=== PATIENT | female | born 1985 | race Caucasian/White ===

== ENCOUNTER 2023-12-19 16:02 | Inpatient (IN) | payer BC, OTHER ==
[2023-12-19] MEDS ORDERED: FAMOTIDINE 20 MG/50 ML IVPB 20 MG/50 ML MG IVPB ONE ×2 (17:03→17:08)
[2023-12-19] MEDS ORDERED: ONDANSETRON 4 MG/2 ML VIAL IVPUSH ONE (17:03)
[2023-12-19] MEDS ORDERED: morphine CARPU-JECT 2 MG/1 ML DISP.SYRIN IVPUSH ONE ×2 (17:03→18:48)
[2023-12-19] MEDS ORDERED: ONDANSETRON 4 MG/2 ML VIAL ONE (17:08)
[2023-12-19] MEDS ORDERED: morphine SULFATE 4 MG/ML VIAL ONE (17:08)
[2023-12-19 17:37] LABS: BASO % 0.3 % (0-2.0); EOS % 0.1 % (0-4.5); HEMATOCRIT 40.1 % (32.4-45.2); HEMOGLOBIN 13.8 GM/dL (10.7-15.3); LYMPH % 9.1 % (8-40); MCHC 34.4 g/dl (32.0-36.0); MEAN PLT VOLUME 8.4 fl (7.5-11.1); NEUT % 87.5 % (42.8-82.8); PLATELET COUNT 329 10^3/uL (134-434); RBC 4.46 M/mm3 (3.60-5.2); RDW 13.6 % (11.6-15.6); WHITE BLOOD COUNT 11.5 K/mm3 (4.0-10.0)
[2023-12-19 17:46] LABS: INR 1.08 (0.83-1.09); PROTHROMBIN TIME (PATIENT) 12.5 SEC (9.7-13.0)
[2023-12-19 17:49] LABS: ACTIVATED PTT 29.1 SECONDS (25.2-36.5)
[2023-12-19 18:21] LABS: POTASSIUM 3.3 mmol/L (3.5-5.1)
[2023-12-19 18:24] LABS: BLOOD UREA NITROGEN 10.9 mg/dL (7-18); CALCIUM 9.9 mg/dL (8.5-10.1)
[2023-12-19 18:25] LABS: MAGNESIUM 1.8 mg/dL (1.8-2.4)
[2023-12-19 18:27] LABS: CREATININE 0.7 mg/dL (0.55-1.3)
[2023-12-19 18:28] LABS: TOT PROT 8.1 g/dl (6.4-8.2)
[2023-12-19 18:29] LABS: BILIRUBIN,TOTAL 0.4 mg/dL (0.2-1)
[2023-12-19] MEDS ORDERED: KCL 20 MEQ PREMIX BAG 20 MEQ/100 ML INFUS.BAG IVPB SCH (18:30)
[2023-12-19] MEDS ORDERED: ACETAMINOPHEN 1000 MG/100 ML BAG IVPB ONE (18:30)
[2023-12-19] MEDS ORDERED: LACTATED RINGERS SOLUTION 1000 ML INFUS.BAG IV ONE ×2 (18:31→22:31)
[2023-12-19] MEDS ORDERED: ACETAMINOPHEN INJECTION 100 ML IVPB ONE (18:39)
[2023-12-19] MEDS ORDERED: KCL 10 MEQ IVPB 10 MEQ/100 ML INFUS.BAG IVPB ONE ×2 (18:54→21:51)
[2023-12-19 18:57] LABS: LACTIC ACID 3.2 mmol/L (0.4-2.0)
[2023-12-19] MEDS: KCL 10 MEQ IVPB 10 MEQ/100 ML INFUS.BAG IVPB SCH ×2 (19:00→21:38)
[2023-12-19] MEDS ORDERED: KETOROLAC TROMETHAMINE 15 MG/ML VIAL IVPUSH ONE (20:34)
[2023-12-19] MEDS ORDERED: KETOROLAC TROMETHAMINE 15 MG/ML VIAL ONE (20:37)
[2023-12-19 23:07] LABS: URINE APPEARANCE CLEAR; URINE BILIRUBIN NEGATIVE (NEGATIVE); URINE COLOR YELLOW; URINE GLUCOSE (UA) NEGATIVE (NEGATIVE)
[2023-12-19 23:08] LABS: URINE KETONE >=80 mg/dl (NEGATIVE); URINE LEUK ESTERASE NEGATIVE (NEGATIVE); URINE NITRITE NEGATIVE (NEGATIVE); URINE PROTEIN NEGATIVE (NEGATIVE)
[2023-12-19 23:23] LABS: COCAINE, UR NEGATIVE (NEGATIVE); METHADONE, UR NEGATIVE (NEGATIVE); OPIATES, URI POSITIVE (NEGATIVE); PHENCYCLIDINE,URINE NEGATIVE (NEGATIVE); URINE AMPHETAMINES NEGATIVE (NEGATIVE); URINE BARBITURATES NEGATIVE (NEGATIVE); URINE BENZODIAZEPINES NEGATIVE (NEGATIVE)
[2023-12-20] MEDS: SODIUM CHLORIDE 1,000 ML IV SCH ×2 (01:25→21:40)
[2023-12-20] MEDS: KETOROLAC TROMETHAMINE 15 MG/ML VIAL IVPUSH PRN ×4 (01:38→18:34)
[2023-12-20] MEDS ORDERED: KETOROLAC TROMETHAMINE 15 MG/ML VIAL ONE ×3 (01:45→14:27)
[2023-12-20] MEDS ORDERED: BISACODYL 10 MG SUPP.RECT PR ONE (05:44)
[2023-12-20] MEDS ORDERED: BISACODYL 10 MG SUPP.RECT ONE (05:46)
[2023-12-20] MEDS ORDERED: ONDANSETRON 4 MG/2 ML VIAL IVPUSH PRN (07:33)
[2023-12-20 07:37] LABS: HEMOGLOBIN 13.2 GM/dL (10.7-15.3); MCH 31.5 pg (25.7-33.7); MCHC 34.6 g/dl (32.0-36.0); MEAN CELL VOLUME 91.1 fl (80-96); MEAN PLT VOLUME 8.7 fl (7.5-11.1); PLATELET COUNT 305 10^3/uL (134-434); RBC 4.18 M/mm3 (3.60-5.2); RDW 13.6 % (11.6-15.6); WHITE BLOOD COUNT 11.2 K/mm3 (4.0-10.0)
[2023-12-20 07:59] LABS: POTASSIUM 3.7 mmol/L (3.5-5.1)
[2023-12-20 08:04] LABS: CALCIUM 8.9 mg/dL (8.5-10.1)
[2023-12-20 08:05] LABS: ALBUMIN 3.2 g/dl (3.4-5.0); BLOOD UREA NITROGEN 7.6 mg/dL (7-18); MAGNESIUM 1.8 mg/dL (1.8-2.4)
[2023-12-20 08:07] LABS: PHOSPHOROUS 4.1 mg/dL (2.5-4.9)
[2023-12-20 08:08] LABS: CREATININE 0.5 mg/dL (0.55-1.3)
[2023-12-20 08:09] LABS: TOT PROT 6.8 g/dl (6.4-8.2)
[2023-12-20 09:10] LABS: BILIRUBIN,TOTAL 0.8 mg/dL (0.2-1)
[2023-12-20] MEDS: ENOXAPARIN NA (PORCINE) 40 MG/0.4 ML DISP.SYRIN SQ SCH (09:50)
[2023-12-20] MEDS ORDERED: FAMOTIDINE 20 MG/50 ML IVPB 20 MG/50 ML MG IVPB ONE (09:53)
[2023-12-20] MEDS ORDERED: ONDANSETRON 4 MG/2 ML VIAL ONE (09:53)
[2023-12-20] MEDS: FAMOTIDINE 20 MG/50 ML IVPB 20 MG/50 ML MG IVPB SCH ×2 (10:01→21:41)
[2023-12-20 16:37] VITALS: BMI 26.5
[2023-12-20] MEDS: ACETAMINOPHEN 1000 MG/100 ML BAG IVPB PRN (21:37)
[2023-12-20] MEDS ORDERED: SENNOSIDES/DOCUSATE COMBO (SENNA PLUS) TABLET (UD) PO SCH (22:00)
[2023-12-21] MEDS: KETOROLAC TROMETHAMINE 15 MG/ML VIAL IVPUSH PRN ×2 (00:12→06:24)
[2023-12-21] MEDS: ACETAMINOPHEN 1000 MG/100 ML BAG IVPB PRN (03:38)
[2023-12-21] MEDS ORDERED: traMADol HCL 50 MG TABLET PO PRN (08:03)
[2023-12-21] MEDS: ACETAMINOPHEN 1000 MG/100 ML BAG IVPB SCH ×2 (09:10→16:08)
[2023-12-21] MEDS: FAMOTIDINE 20 MG/50 ML IVPB 20 MG/50 ML MG IVPB SCH (09:11)
[2023-12-21] MEDS: KETOROLAC TROMETHAMINE 15 MG/ML VIAL IVPUSH SCH ×4 (09:11→21:50)
[2023-12-21] MEDS: ENOXAPARIN NA (PORCINE) 40 MG/0.4 ML DISP.SYRIN SQ SCH (09:12)
[2023-12-21] MEDS: POLYETHYLENE GLYCOL (HEALTHYLAX) 3350 17 GM PACKET PO SCH ×4 (09:12→21:50)
[2023-12-21] MEDS: PANTOPRAZOLE SODIUM 40 MG VIAL IVPUSH SCH ×2 (10:16→21:37)
[2023-12-21 10:50] LABS: BASO % 0.3 % (0-2.0); EOS % 0.2 % (0-4.5); HEMATOCRIT 36.8 % (32.4-45.2); HEMOGLOBIN 12.9 GM/dL (10.7-15.3); LYMPH % 19.6 % (8-40); MCH 32.2 pg (25.7-33.7); MCHC 35.2 g/dl (32.0-36.0); MEAN CELL VOLUME 91.4 fl (80-96); MEAN PLT VOLUME 8.7 fl (7.5-11.1); MONO % 5.3 % (3.8-10.2); NEUT % 74.6 % (42.8-82.8); PLATELET COUNT 258 10^3/uL (134-434); RBC 4.03 M/mm3 (3.60-5.2); RDW 13.2 % (11.6-15.6); WHITE BLOOD COUNT 8.9 K/mm3 (4.0-10.0)
[2023-12-21 10:55] LABS: POTASSIUM 3.8 mmol/L (3.5-5.1)
[2023-12-21 11:05] LABS: CALCIUM 8.3 mg/dL (8.5-10.1)
[2023-12-21 11:08] LABS: CREATININE 0.5 mg/dL (0.55-1.3)
[2023-12-21 11:09] LABS: TOT PROT 6.2 g/dl (6.4-8.2)
[2023-12-21 11:10] LABS: BILIRUBIN,TOTAL 0.7 mg/dL (0.2-1)
[2023-12-21] MEDS: AMINO ACIDS 4.25%/D5W 1,000 ML IV SCH (16:08)
[2023-12-21] MEDS: ONDANSETRON 4 MG/2 ML VIAL IVPUSH PRN (16:08)
[2023-12-21] MEDS: SODIUM CHLORIDE 1,000 ML IV SCH (16:09)
[2023-12-22] MEDS: ACETAMINOPHEN 1000 MG/100 ML BAG IVPB SCH ×3 (00:30→18:18)
[2023-12-22] MEDS: KETOROLAC TROMETHAMINE 15 MG/ML VIAL IVPUSH SCH ×4 (01:54→21:09)
[2023-12-22] MEDS: PANTOPRAZOLE SODIUM 40 MG VIAL IVPUSH SCH (09:38)
[2023-12-22 10:09] LABS: BASO % 0.2 % (0-2.0); EOS % 0.5 % (0-4.5); HEMATOCRIT 37.3 % (32.4-45.2); LYMPH % 10.3 % (8-40); MCH 31.7 pg (25.7-33.7); MEAN CELL VOLUME 90.8 fl (80-96); MEAN PLT VOLUME 8.4 fl (7.5-11.1); PLATELET COUNT 253 10^3/uL (134-434); RBC 4.11 M/mm3 (3.60-5.2); RDW 13.1 % (11.6-15.6); WHITE BLOOD COUNT 7.2 K/mm3 (4.0-10.0)
[2023-12-22] MEDS: ENOXAPARIN NA (PORCINE) 40 MG/0.4 ML DISP.SYRIN SQ SCH (10:26)
[2023-12-22 10:27] LABS: POTASSIUM 3.3 mmol/L (3.5-5.1)
[2023-12-22] MEDS: POLYETHYLENE GLYCOL (HEALTHYLAX) 3350 17 GM PACKET PO SCH (10:27)
[2023-12-22] MEDS ORDERED: ACETAMINOPHEN 1000 MG/100 ML BAG IVPB PRN (10:28)
[2023-12-22] MEDS ORDERED: LIDOCAINE VISCOUS 2% ORAL/TOP 15 ML UNIT-DOSE CUP MM PRN (10:29)
[2023-12-22 10:49] LABS: ALBUMIN 3.2 g/dl (3.4-5.0); BLOOD UREA NITROGEN 7.4 mg/dL (7-18); CALCIUM 8.3 mg/dL (8.5-10.1); MAGNESIUM 1.7 mg/dL (1.8-2.4)
[2023-12-22 10:52] LABS: CREATININE 0.5 mg/dL (0.55-1.3); PHOSPHOROUS 3.4 mg/dL (2.5-4.9)
[2023-12-22 10:53] LABS: BILIRUBIN,TOTAL 1.3 mg/dL (0.2-1); TOT PROT 6.3 g/dl (6.4-8.2)
[2023-12-22] MEDS: SODIUM CHLORIDE 1,000 ML IV SCH (11:26)
[2023-12-22] MEDS: KCL 10 MEQ IVPB 10 MEQ/100 ML INFUS.BAG IVPB SCH ×3 (15:16→21:12)
[2023-12-22] MEDS: AMINO ACIDS 4.25%/D5W 1,000 ML IV SCH (16:49)
[2023-12-22 19:05] VITALS: RESP 18
[2023-12-23] MEDS: KETOROLAC TROMETHAMINE 15 MG/ML VIAL IVPUSH SCH ×3 (03:27→16:27)
[2023-12-23] MEDS: ACETAMINOPHEN 1000 MG/100 ML BAG IVPB SCH ×3 (04:05→21:58)
[2023-12-23] MEDS: ENOXAPARIN NA (PORCINE) 40 MG/0.4 ML DISP.SYRIN SQ SCH (09:37)
[2023-12-23] MEDS: PANTOPRAZOLE SODIUM 40 MG VIAL IVPUSH SCH (09:51)
[2023-12-23] MEDS: ONDANSETRON 4 MG/2 ML VIAL IVPUSH PRN (11:18)
[2023-12-23 11:43] LABS: BASO % 0.3 % (0-2.0); EOS % 0.8 % (0-4.5); HEMOGLOBIN 12.6 GM/dL (10.7-15.3); LYMPH % 9.7 % (8-40); MCH 31.2 pg (25.7-33.7); MEAN CELL VOLUME 91.6 fl (80-96); MEAN PLT VOLUME 8.5 fl (7.5-11.1); MONO % 5.4 % (3.8-10.2); NEUT % 83.8 % (42.8-82.8); PLATELET COUNT 262 10^3/uL (134-434); RBC 4.03 M/mm3 (3.60-5.2); RDW 13.2 % (11.6-15.6); WHITE BLOOD COUNT 8.8 K/mm3 (4.0-10.0)
[2023-12-23 11:45] LABS: POTASSIUM 3.3 mmol/L (3.5-5.1)
[2023-12-23 11:55] LABS: BLOOD UREA NITROGEN 5.8 mg/dL (7-18)
[2023-12-23 11:56] LABS: CALCIUM 8.4 mg/dL (8.5-10.1)
[2023-12-23 11:57] LABS: ALBUMIN 2.9 g/dl (3.4-5.0)
[2023-12-23 11:58] LABS: CREATININE 0.5 mg/dL (0.55-1.3)
[2023-12-23 12:00] LABS: BILIRUBIN,TOTAL 0.6 mg/dL (0.2-1); TOT PROT 6.3 g/dl (6.4-8.2)
[2023-12-23] MEDS ORDERED: POTASSIUM CHLORIDE 40 MEQ in AMINO ACIDS 4.25%/D5W 1,000 ML IV SCH (15:09)
[2023-12-23] MEDS ORDERED: SODIUM CHLORIDE 1,000 ML with POTASSIUM CHLORIDE 40 MEQ IV SCH (15:15)
[2023-12-23] MEDS: LACTATED RINGERS SOLUTION 1,000 ML/1,000 ML INFUS.BAG IV SCH (17:15)
[2023-12-24] MEDS: KETOROLAC TROMETHAMINE 15 MG/ML VIAL IVPUSH SCH ×2 (05:13→05:18)
[2023-12-24] MEDS: LACTATED RINGERS SOLUTION 1,000 ML/1,000 ML INFUS.BAG IV SCH ×2 (06:15→19:09)
[2023-12-24] MEDS: ACETAMINOPHEN 1000 MG/100 ML BAG IVPB SCH ×3 (06:53→22:01)
[2023-12-24] MEDS: PANTOPRAZOLE SODIUM 40 MG VIAL IVPUSH SCH (09:29)
[2023-12-24] MEDS: ENOXAPARIN NA (PORCINE) 40 MG/0.4 ML DISP.SYRIN SQ SCH (09:32)
[2023-12-24] MEDS ORDERED: KETOROLAC TROMETHAMINE 30 MG/1 ML VIAL IVPUSH PRN (09:36)
[2023-12-24 11:05] LABS: BASO % 0.4 % (0-2.0); EOS % 1.1 % (0-4.5); HEMATOCRIT 38.4 % (32.4-45.2); HEMOGLOBIN 12.9 GM/dL (10.7-15.3); LYMPH % 14.9 % (8-40); MCH 30.8 pg (25.7-33.7); MCHC 33.6 g/dl (32.0-36.0); MEAN CELL VOLUME 91.8 fl (80-96); MEAN PLT VOLUME 8.3 fl (7.5-11.1); MONO % 5.1 % (3.8-10.2); NEUT % 78.5 % (42.8-82.8); PLATELET COUNT 294 10^3/uL (134-434); RBC 4.18 M/mm3 (3.60-5.2); WHITE BLOOD COUNT 7.1 K/mm3 (4.0-10.0)
[2023-12-24 11:21] LABS: POTASSIUM 3.8 mmol/L (3.5-5.1)
[2023-12-24 11:56] LABS: BLOOD UREA NITROGEN 5.4 mg/dL (7-18); CALCIUM 8.8 mg/dL (8.5-10.1)
[2023-12-24 11:57] LABS: ALBUMIN 3.3 g/dl (3.4-5.0)
[2023-12-24 12:00] LABS: CREATININE 0.5 mg/dL (0.55-1.3)
[2023-12-24 12:01] LABS: BILIRUBIN,TOTAL 0.5 mg/dL (0.2-1); TOT PROT 6.8 g/dl (6.4-8.2)
[2023-12-25] MEDS: ACETAMINOPHEN 1000 MG/100 ML BAG IVPB SCH ×2 (05:36→14:17)
[2023-12-25 06:52] VITALS: TEMP 98.1
[2023-12-25] MEDS: PANTOPRAZOLE SODIUM 40 MG VIAL IVPUSH SCH (09:36)
[2023-12-25] MEDS: ENOXAPARIN NA (PORCINE) 40 MG/0.4 ML DISP.SYRIN SQ SCH (09:37)
[2023-12-25 09:40] LABS: BASO % 0.8 % (0-2.0); EOS % 1.8 % (0-4.5); HEMATOCRIT 37.3 % (32.4-45.2); HEMOGLOBIN 12.8 GM/dL (10.7-15.3); MCHC 34.2 g/dl (32.0-36.0); MEAN CELL VOLUME 90.7 fl (80-96); MEAN PLT VOLUME 8.1 fl (7.5-11.1); MONO % 5.4 % (3.8-10.2); PLATELET COUNT 291 10^3/uL (134-434); RBC 4.11 M/mm3 (3.60-5.2); WHITE BLOOD COUNT 5.4 K/mm3 (4.0-10.0)
[2023-12-25 10:04] LABS: CHLORIDE 106 mmol/L (98-107); POTASSIUM 3.2 mmol/L (3.5-5.1); SODIUM 139 mmol/L (136-145)
[2023-12-25] MEDS ORDERED: IBUPROFEN 400 MG TABLET (FP) PO PRN (10:18)
[2023-12-25] MEDS ORDERED: POTASSIUM CHLORIDE TABS 20 MEQ TABLET.ER (FP) PO ONE (10:30)
[2023-12-25 10:37] LABS: GLUCOSE,RANDOM 89 mg/dL (74-106)
[2023-12-25 10:38] LABS: BILIRUBIN,TOTAL 0.4 mg/dL (0.2-1); SGOT/AST 48 U/L (15-37)
[2023-12-25 10:39] LABS: ALK PHOS 59 U/L (45-117); TOT PROT 6.6 g/dl (6.4-8.2)
[2023-12-25 10:40] LABS: CALCIUM 8.9 mg/dL (8.5-10.1); CREATININE 0.5 mg/dL (0.55-1.3); SGPT/ALT 60 U/L (13-61)
[2023-12-25 10:51] LABS: ALBUMIN 3.1 g/dl (3.4-5.0); ANION GAP 8 mmol/L (4-13); CO2 26 mmol/L (21-32); MAGNESIUM 1.7 mg/dL (1.8-2.4)
[2023-12-25 10:55] LABS: BLOOD UREA NITROGEN 2.4 mg/dL (7-18); PHOSPHOROUS 3.3 mg/dL (2.5-4.9)
[2023-12-25] MEDS ORDERED: MAGNESIUM SULFATE IN WATER 2 GM/50 ML IVPB IVPB ONE (11:28)
[2023-12-25 13:11] VITALS: BP 128/88; PULSE 70
[2023-12-26] MEDS ORDERED: PANTOPRAZOLE 40 MG TABLET PO SCH (10:00)
== END 2023-12-25 14:10 | disposition home or self-care (01) | DRG 390 ==
LOC: JER 16:02 → JERBED 20:01 → J5S 12-20 15:53 → OBSVTOIN 12-22 09:29
PROVIDERS: ADMIT Internal Medicine
DX: K56.699 Other intestinal obstruction unspecified as to partial versus complete obstruction (principal); D72.829 Elevated white blood cell count, unspecified; K59.00 Constipation, unspecified
CPT/HCPCS: 36415; 71045-TC-FY; 74018-TC-FY; 74019-TC-FY; 74174-TC; 74177-TC; 74251-TC-FY; 76830-TC; 80053; 80307; 81003; 83605; 83690; 83735; 84100; 84703; 85025; 85027; 85610; 85651; 85730; 86140; 86850; 86900; 86901; 87045; 87046; 93005; 93010; 99285-25; G0378; J0131